=== PATIENT | female | born 1960 | race Caucasian/White ===

== ENCOUNTER 2017-08-27 08:40 | Day surgery (SDC) | payer OTHER ==
[2017-08-26 13:57] VITALS: BMI 25.9
--- NOTE | 2017-08-27 10:02 | PROC ---
Endoscopy Procedure Endoscopy procedure completed. Please see scanned procedure report. s/p EGD w/ cold forceps biopsies f/up in 2weeks
[2017-08-27 10:21] VITALS: TEMP 98
[2017-08-27 13:17] VITALS: BP 116/74; PULSE 62
--- NOTE | 2017-08-28 17:38 | PATH ---
Surgical Pathology Report Patient Name: ROLLY CHAU [facility]. Rec. #: [id number] /Age/Gender: 1960 (Age: 56) / F Account: [id number] Location: U-ENDOSCOPY Taken: 08/27/2017 Received: 08/27/2017 Reported: 08/28/2017 Physicians: Lopez Decker M.D. Specimen(s) Received A: BX DUODENUM B: BX ANTRUM AND BODY Clinical History Preoperative diagnosis: Epigastric pain Postoperative diagnosis: Same Final Diagnosis A. DUODENUM, SECOND PORTION, BIOPSY: DUODENAL MUCOSA WITHOUT SIGNIFICANT PATHOLOGIC FINDINGS. B. STOMACH, ANTRUM AND BODY, BIOPSY: GASTRIC ANTRAL AND BODY MUCOSA WITH MODERATE CHRONIC GASTRITIS. DIFF-QUIK SPECIAL STAIN IS NEGATIVE FOR HELICOBACTER-LIKE ORGANISMS. Electronically Signed Bri Bloom M.D. Gross Description A. Received in formalin, labeled "biopsy duodenum second portion" is a mclean, irregular portion of soft tissue measuring 0.5 cm. in greatest dimension. The specimen is submitted in toto in one cassette. B. Received in formalin, labeled "biopsy antrum and body" are 2 mclean, irregular portions of soft tissue measuring 0.3 and 0.5 cm. in greatest dimension. The specimens are submitted in toto in one cassette. 08/27/201708/27/2017
== END 2017-08-27 10:40 | disposition home or self-care (01) ==
LOC: JASU-ENDO 08:40
PROVIDERS: ATTEND Internal Medicine Gastroenterology
PROC: 0DB68ZX Excision of Stomach, Via Natural or Artificial Opening Endoscopic, Diagnostic (ICD-10-PCS; 2017-08-27)
PROC: 0DB98ZX Excision of Duodenum, Via Natural or Artificial Opening Endoscopic, Diagnostic (ICD-10-PCS; principal; 2017-08-27 09:30)
DX: K29.70 Gastritis, unspecified, without bleeding (principal); R10.13 Epigastric pain
CPT/HCPCS: 84703; 88305-TC; 88312-TC

== ENCOUNTER 2019-11-17 08:14 | Day surgery (SDC) | payer OTHER ==
[2019-11-16 14:01] VITALS: BMI 26.2
[2019-11-17 10:00] VITALS: TEMP 97.5
[2019-11-17 10:31] VITALS: BP 119/56; PULSE 87
--- NOTE | 2019-11-18 17:59 | PATH ---
Surgical Pathology Report Patient Name: ROLLY CHAU [facility]. Rec. #: [id number] /Age/Gender: 1960 (Age: 59) / F Account: [id number] Location: U-ENDOSCOPY Taken: 11/17/2019 Received: 11/17/2019 Reported: 11/18/2019 Physicians: Marty Valle D.O. Specimen(s) Received A: CECAL POLYP B: SIGMOID POLYP Clinical History Screening, hepatomegaly Postoperative diagnosis: Diverticulosis, colon polyps, hemorrhoids Final Diagnosis A. CECAL POLYP, BIOPSY: TUBULAR ADENOMA. B. SIGMOID COLON, POLYP, BIOPSY: POLYPOID COLONIC MUCOSA WITHOUT SIGNIFICANT PATHOLOGIC FINDINGS. Electronically Signed Bri Bloom M.D. Gross Description A. Received in formalin, labeled "biopsy cecal polyp" is a mclean, irregular portion of soft tissue measuring 0.5 cm. in greatest dimension. The specimen is submitted in toto in one cassette. B. Received in formalin, labeled "biopsy sigmoid polyp" is a mclean, irregular portion of soft tissue measuring 0.1 cm. in greatest dimension. The specimen is submitted in toto in one cassette. DL/11/17/2019 saudi/11/17/2019
== END 2019-11-17 10:36 | disposition home or self-care (01) ==
LOC: JASU-ENDO 08:14
PROVIDERS: ATTEND Internal Medicine Gastroenterology
PROC: 0DBN8ZX Excision of Sigmoid Colon, Via Natural or Artificial Opening Endoscopic, Diagnostic (ICD-10-PCS; 2019-11-17)
PROC: 0DBH8ZX Excision of Cecum, Via Natural or Artificial Opening Endoscopic, Diagnostic (ICD-10-PCS; principal; 2019-11-17 09:00)
DX: Z12.11 Encounter for screening for malignant neoplasm of colon (principal); D12.0 Benign neoplasm of cecum; D12.5 Benign neoplasm of sigmoid colon; K57.30 Diverticulosis of large intestine without perforation or abscess without bleeding; K64.8 Other hemorrhoids
CPT/HCPCS: 88305-TC

== ENCOUNTER 2020-12-06 05:35 | Day surgery (SDC) | payer OTHER ==
[2020-12-04 10:37] VITALS: BMI 25.7
[2020-12-06 11:14] VITALS: TEMP 97
[2020-12-06 12:18] VITALS: BP 121/65; PULSE 71
== END 2020-12-06 12:05 | disposition home or self-care (01) ==
LOC: JASU-ENDO 05:35
PROVIDERS: ATTEND Internal Medicine Gastroenterology
PROC: 0DB78ZX Excision of Stomach, Pylorus, Via Natural or Artificial Opening Endoscopic, Diagnostic (ICD-10-PCS; principal; 2020-12-06 12:00)
DX: K29.50 Unspecified chronic gastritis without bleeding (principal); K44.9 Diaphragmatic hernia without obstruction or gangrene
CPT/HCPCS: 88305-TC; 88342-TC